=== PATIENT | female | born 1945 | race Caucasian/White ===

== ENCOUNTER 2016-06-11 11:51 | Inpatient (IN) | payer MEDICARE, OTHER ==
--- NOTE | ~2016-06-11 | DS ---
Discharge Summary [id number] [place]. [address] NAME: VINCENT AHUMADA : 41 STATUS : DIS IN PAT#: [id number] AGE: 70 ADM/REG DATE : 06/12/16 MR#: [id number] REPORT SERV DATE: 06/15/16 DICTATED BY: AVINASH LARSON DATE: 06/14/16 REPORT STATUS : Draft TRANSCRIBED BY: MODL DATE: 06/14/16 ADMISSION DATE: 06/12/2016 DISCHARGE DATE: 06/14/2016 PRINCIPAL DIAGNOSIS: Escherichia coli sepsis due to pyelonephritis exacerbated by immunocompromised state due to disease modifying antirheumatic drugs versus rheumatoid arthritis. HISTORY OF PRESENT ILLNESS: Please see Dr. Weeks's dictation on 06/11/2016. HOSPITAL COURSE: Admitted with fever, dysuria, flank pain, found to have pyelonephritis. Urine cultures and blood cultures were all positive for E. coli which was sensitive to numerous agents; however, resistant to quinolone therapy. The patient quickly defervesced. White count normalized, but intravenous antibiotics felt to be necessary for total of two- week therapy. A PICC line was placed on 06/13/2016 and ceftriaxone was given for total two weeks with the blessing of the Infectious Disease consultants. She would have Rocephin daily through the Infusion Center and have the PICC line removed at the end of the two-week period of time. She is recommended to hold off her methotrexate during the course of her antibiotic therapy and then to discuss with stripping and booking machine operator, Dr. Bateman regarding long-term reduction of hydroxychloroquine and possibly reduction in her methotrexate dose as well. Immunoglobulins had been ordered and were still pending at the time of dictation. She will follow up with Dr. Richard Jimenez as an outpatient, with Dr. Bateman from Rheumatology. RS/ALANA Avinash Larson M.D. / [id number] CC: Riri Brown M.D. Melinda J. Garcia-Rosell, MD
--- NOTE | ~2016-06-11 | HP ---
History And Physical [facility] [address] [place]. [address] NAME: VINCENT AHUMADA : 41 STATUS : ADM Darian PAT#: [id number] AGE: 70 ADM/REG DATE : 06/11/16 MR#: [id number] REPORT SERV DATE: 06/11/16 DICTATED BY: BRIGHT PAUL DATE: 06/11/16 REPORT STATUS : Draft TRANSCRIBED BY: MODAlysha DATE: 06/11/16 DATE OF ADMISSION: 06/11/2016 REASON FOR ADMISSION: Pyelonephritis. HISTORY OF PRESENT ILLNESS: This is a 70-year-old white female with rheumatoid arthritis on methotrexate. She went to the emergency room about three days ago with complaint of not feeling well. She did have a good workup previously but urinalysis was not done. Yesterday she began having fever and chills and burning with urination. She had shaking rigors during [employer]. She came to the emergency room this morning and urinalysis did not show evidence of urinary tract infection. She does have CVA tenderness on the left side greater than the right. She is being admitted to the hospital for a presumptive diagnosis of pyelonephritis. She has had no hematuria. No dysuria. No melena. She does have a history of malignant colonic polyp in the past. She has had frequent urinary tract infections but no known anatomic defect. She has about three per year. In the emergency room, the urinalysis showed greater than 182 white cells with 9 red cells, large leukocyte esterase, specific gravity 1.017. She has had some nausea and vomiting with this. PAST MEDICAL HISTORY: Rheumatoid arthritis, on methotrexate. She does have a history of asthma and takes a Xolair injection every month prescribed by Dr. Sadia Vincent. She has aerosols as well at home. She has had sinus surgery at [facility]. HOME MEDICATIONS: Yet to be identified. FAMILY HISTORY: She had a brother who has high blood pressure. Her mother had an AL. Her father had colon cancer. She has 5 children who are alive and well. SOCIAL HISTORY: She does not smoke or drink. She lives in [place]. 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 REVIEW OF SYSTEMS: As above. No chest pain or shortness of breath. No wheezing. No melena or hematemesis. The remainder of the review of systems is negative. She did have vein surgery on May [address] [facility]. LABORATORY DATA: The white blood cell count was 00750, hemoglobin 10.2, hematocrit 32.4, and platelets 242,000. The urinalysis showed 182 white cells per high-powered field, specific gravity as above, and 9 rbc's. History And Physical [address] [address] NAME: VINCENT AHUMADA : 41 STATUS : ADM Darian PAT#: [id number] AGE: 70 ADM/REG DATE : 06/11/16 MR#: [id number] REPORT SERV DATE: 06/11/16 DICTATED BY: BRIGHT PAUL DATE: 06/11/16 REPORT STATUS : Draft TRANSCRIBED BY: ALANA DATE: 06/11/16 PHYSICAL EXAMINATION: VITAL SIGNS: Blood pressure 130/70 with a heart rate of 88, respiratory rate 18, afebrile. HEENT: EOMI. Sclerae clear. Conjunctivae pink. NECK: No bruit without any JVD. CHEST: Clear to A and P. HEART: Irregularly irregular sounding S1 and S2 with multiple PACs. BREASTS: Grossly without mass. ABDOMEN: Soft, nontender. Bowel sounds positive. There is some tenderness in the left abdomen and flank. She has CVA tenderness on the left side. The abdomen has no mass. EXTREMITIES: Have no edema. She does have some support stockings on. Distal pulses are intact. Left leg has small sutures from previous venous surgery superficially. NEUROLOGIC: She does withdraw to plantar stimulation. Winder Fixer is symmetric bilaterally. Coordination intact. She has no tremor. Her machine stripper is equal and symmetric. Coordination is intact. ASSESSMENT: 1. Pyelonephritis left-sided. She usually has 2 to 3 urinary tract infections per year. There may be some anatomic abnormality causing this and may deserve a urologic workup once the acute illness is treated. Admit to observation. Use IV Rocephin and observe. Levaquin was given in the emergency room. She can be converted to oral Levaquin or other antibiotic depending on the urine culture once she is able to convert to p.o. 2. Nausea and vomiting secondary to pyelonephritis left-sided. 3. Hypertension recently though she is on no medications for that. 4. Moderate obesity. 5. Recent vein surgery left leg. 6. Gastroesophageal reflux disease. 7. Rheumatoid arthritis, on methotrexate, followed by Dr. Bateman at [facility]. 8. History of asthma on Xolair injections per Dr. Vincent. 9. History of colonic polyp. PLAN: Admit. IV Rocephin. IV fluid hydration. Convert to oral antibiotics once the fever is gone and the patient can tolerate oral medication. 20% of patients with pyelonephritis will have a positive blood culture though it may not require more than a 24-hour hospital observation course. Therefore the patient is admitted to observation. DB/ALANA Bright Paul M.D. / [id number] CC: Cleve Villanueva Jr, MD Jung Park, M.D. History And Physical [address] [address] NAME: VINCENT AHUMADA : 41 STATUS : ADM Darian PAT#: [id number] AGE: 70 ADM/REG DATE : 06/11/16 MR#: [id number] REPORT SERV DATE: 06/11/16 DICTATED BY: BRIGHT PAUL DATE: 06/11/16 REPORT STATUS : Draft TRANSCRIBED BY: MODAlysha DATE: 06/11/16 Riri Hare MD
--- NOTE | ~2016-06-11 | CN ---
Consultation Report [facility] [address] [place]. [address] NAME: VINCENT AHUMADA : 41 STATUS : ADM IN [facility]#: [id number] AGE: 70 ADM/REG DATE : 06/12/16 MR#: [id number] REPORT SERV DATE: 06/14/16 DICTATED BY: NIKKI BRANDT DATE: 06/14/16 REPORT STATUS : Draft TRANSCRIBED BY: MODL DATE: 06/14/16 INFECTIOUS DISEASE CONSULTATION DATE OF CONSULTATION: 06/14/2016 REASON FOR CONSULTATION: Pyelonephritis. HISTORY OF PRESENT ILLNESS: This is a 70-year-old female with a past medical history notable for frequent urinary tract infections along with a history of rheumatoid arthritis, for which she is on methotrexate. She was in her baseline state of health until 06/09 when she just felt fatigued all day. The following day, she developed chills while at [employer]into and then severe rigors and urinary urgency, and these symptoms brought her to the emergency department at [facility] that morning, where she was tachycardic and was found to have marked pyuria on urinalysis and a white blood cell count of 17,600. After blood cultures and urine cultures were obtained, she was started on ceftriaxone. Both sets of blood cultures and her urine culture have returned with E coli resistant to quinolones and Septra. She has been on ceftriaxone and steadily has improved. She did have some left costovertebral angle tenderness on admission and that has resolved. A PICC line has been placed in anticipation of discharge on IV ceftriaxone to finish her course of therapy. PAST MEDICAL HISTORY: As outlined above. The patient states she has seen Dr. Rios of Urology in the past. She is due to see him again, she says, in June or July. For about three months, she took chronic antibiotic prophylaxis with what sounds like Macrodantin. In addition to her rheumatoid arthritis, she has asthma and receives IV infusions of Xolair on a regular basis in the infusion center. The patient recently had vein stripping surgery earlier this month. ALLERGIES: CEPHALEXIN CAUSED A RASH IN THE PAST. PRESENT MEDICATIONS: In addition to the ceftriaxone in the hospital are reviewed as are her outpatient medications. Her outpatient medications in addition to the above include albuterol, Caltrate, cranberry extract, estradiol, Flonase, folic acid, glucosamine and chondroitin tablet, Plaquenil, loratadine, weekly methotrexate, metoprolol, Dulera, multivitamins, Ditropan, and Protonix. SOCIAL HISTORY: She lives with her . Nonsmoker and nondrinker. Lives in [place]. FAMILY HISTORY: Notable for hypertension and coronary artery disease along with colon cancer in her father. REVIEW OF SYSTEMS: As outlined above, otherwise negative. PHYSICAL EXAMINATION: Consultation Report [address] [place]. [address] NAME: VINCENT AHUMADA : 41 STATUS : ADM IN [facility]#: [id number] AGE: 70 ADM/REG DATE : 06/12/16 MR#: [id number] REPORT SERV DATE: 06/14/16 DICTATED BY: NIKKI BRANDT DATE: 06/14/16 REPORT STATUS : Draft TRANSCRIBED BY: ALANA DATE: 06/14/16 GENERAL: This is a pleasant and alert female. VITAL SIGNS: She is presently afebrile. Her maximum fever this hospitalization was 102.5. Pulse is 83, was above 100 over the first hours of admission. Blood pressure 132/68. She weighs 71 kg. HEAD AND NECK: Show clear oral cavity, no thrush. LUNGS: Clear to auscultation. CARDIAC: Regular rate and rhythm without murmur, gallop, or rub. BACK: Shows no CVA tenderness. ABDOMEN: Soft and nontender. EXTREMITIES: Without rash. She does have varicosities in her lower legs. There are small focal well-healing surgical wounds from the vein stripping surgery earlier this month. LABORATORY STUDIES: Creatinine is 0.90. White blood cell count today is 3.9, hemoglobin 10.6, platelets 288. IMAGING STUDIES: The patient had a renal ultrasound on 06/12, which revealed a 7 x 6 x 10 mm calculus within the medial right kidney, otherwise unremarkable. IMPRESSION: Escherichia coli pyelonephritis with sepsis on admission. The patient is doing well on the ceftriaxone. PLAN: 1. We will give IV ceftriaxone through 06/24 either in the infusion center or at home. 2. The patient has followup scheduled with Dr. Rios in June or July. 3. She will call me if she has any problems while on the IV antibiotics, and we discussed what number to call should she develop any rash, diarrhea or problems with her PICC line, etc. LUIGI/MODL Nikki Brandt M.D. / [id number] CC: Riri Brown M.D. Oliver Benton III, M.D.
[2016-06-11 11:06] LABS: HEMOGLOBIN 10.2 g/dL (12.0-16.0); MEAN CORPUS HGB CONC 31.5 g/dL (32.0-36.0); MEAN CORPUSCULAR HEMOGLOB 27.3 pg (26.0-34.0); MEAN PLATELET VOLUME 10.1 fL (9.2-13.0); PLATELET COUNT 242 10/3/uL (150-400); RBC DISTRIBUTION WIDTH 16.2 % (12.0-16.0); RED CELL COUNT 3.74 10/6/uL (4.0-5.6)
[2016-06-11 11:08] LABS: ER CBC TAT 0 Hrs 13 Mins; HEMATOCRIT 32.4 % (36.0-48.0); MANUAL DIFF YES %; MEAN CORPUSCULAR VOLUME 86.6 fL (80-100); WHITE BLOOD CELLS 17.6 10/3/uL (4.5-10.5)
[2016-06-11 11:11] LABS: ASCORBIC ACID (UR NOT ORDER) NEG (NEG); BILIRUBIN, URINE NEGATIVE (NEG); ER URINALYSIS TAT 0 Hrs 16 Mins; KETONE, URINE NEGATIVE (NEG); LEUKOCYTE ESTERASE(NOT OR LARGE (NEG); NITRITE (URINE) NEG (NEG); WBC (NOT ORDERED) (RFLEX) > 182 (0-5)
[2016-06-11 11:19] LABS: INFLUENZA A SCREEN NEGATIVE (NEGATIVE)
[2016-06-11 11:20] LABS: INFLUENZA B SCREEN NEGATIVE (NEGATIVE)
[2016-06-11 11:27] LABS: BAND NEUTROPHILS 9 %; ER DIFF TAT 0 Hrs 32 Mins; LYMPHOCYTES 2 %; LYMPHOCYTES ABSOLUTE (CALC) 0.18 10/3/uL (0.67-4.30); MONOCYTES 12 %; MONOCYTES ABSOLUTE (CALC) 2.29 10/3/uL (0.21-1.20); NEUTROPHILS ABSOLUTE (CALC) 15.14 10/3/uL (2.02-8.40); SEGMENTED NEUTROPHIL (0) 77 %; TOTAL NUCLEATED CELLS 100
[2016-06-11 11:28] LABS: ELLIPTOCYTES 1+ (3-10/OIF) (0-2/OIF); PLATELET ESTIMATE ADQ (ADEQUATE); STOMATOCYTES 1+ (3-10/OIF) (0-2/OIF)
[2016-06-11 11:32] LABS: CALCIUM, SERUM 8.9 MG/DL (8.5-10.4); CHLORIDE, SERUM 105 MMOL/L (96-112); CO2 (CARBON DIOXIDE) 26 MMOL/L (24-34); CPK 308 U/L (0-200); CREATININE 1.23 MG/DL (0.55-1.02); GFR AFRICAN AMERICAN 51 ML/MIN (>=60); GFR NON AFRICAN AMERICAN 44 ML/MIN (>=60); POTASSIUM, SERUM 3.5 MMOL/L (3.5-5.3); SODIUM, SERUM 141 MMOL/L (135-148)
[2016-06-11 11:33] LABS: BUN (BLOOD UREA NITROGEN) 15 MG/DL (6-23); GLUCOSE, SERUM 113 MG/DL (60-99)
[2016-06-11] MEDS ORDERED: MTX2.5 PO ×2 (13:15→13:16)
[2016-06-11] MEDS ORDERED: FOLIC PO (13:16)
[2016-06-11] MEDS ORDERED: TOPXL25 PO (13:17)
[2016-06-11] MEDS ORDERED: PLAQ200B PO (13:17)
[2016-06-11] MEDS ORDERED: PROTONIX PO (13:18)
[2016-06-11] MEDS ORDERED: CRANBERRY500 MG PO (13:18)
[2016-06-11] MEDS ORDERED: DITROPAN XL10 MG PO (13:18)
[2016-06-11] MEDS ORDERED: GLUCCHONDR PO (13:19)
[2016-06-11] MEDS ORDERED: CLARIT10 PO (13:19)
[2016-06-11] MEDS ORDERED: CALTRAT600 PO (13:19)
[2016-06-11] MEDS ORDERED: DULERA 200 MCG/13 GM INH (13:21)
[2016-06-11] MEDS ORDERED: 8 HOUR650 MG PO (13:21)
[2016-06-11] MEDS ORDERED: XOLAIR SC (13:22)
[2016-06-11] MEDS ORDERED: PROAIR HFA INH (13:22)
[2016-06-11] MEDS ORDERED: MULTIVITAMI1 PO (13:23)
[2016-06-11] MEDS ORDERED: FLONASE NAS (13:23)
[2016-06-11] MEDS ORDERED: ESTRACE VAGIN42.5 GM V (13:24)
[2016-06-11] MEDS ORDERED: CLEOCIN300 MG PO (13:26)
[2016-06-12 06:11] LABS: BASOPHILS 0.2 %; BASOPHILS ABSOLUTE 0.03 10/3/uL (0.0-0.16); EOSINOPHILS 1.3 %; EOSINOPHILS ABSOLUTE 0.17 10/3/uL (0.0-0.53); HEMATOCRIT 33.3 % (36.0-48.0); HEMOGLOBIN 10.6 g/dL (12.0-16.0); IMMATURE GRANULOCYTES 0.3 %; IMMATURE GRANULOCYTES ABSOLUTE 0.04 10/3/uL (0.0-0.11); LYMPHOCYTES 6.8 %; LYMPHOCYTES ABSOLUTE 0.88 10/3/uL (0.67-4.30); MEAN CORPUS HGB CONC 31.8 g/dL (32.0-36.0); MEAN CORPUSCULAR HEMOGLOB 27.8 pg (26.0-34.0); MEAN CORPUSCULAR VOLUME 87.4 fL (80-100); MEAN PLATELET VOLUME 10.7 fL (9.2-13.0); MONOCYTES 8.9 %; MONOCYTES ABSOLUTE 1.14 10/3/uL (0.21-1.20); NEUTROPHILS 82.5 %; PLATELET COUNT 235 10/3/uL (150-400); RBC DISTRIBUTION WIDTH 16.3 % (12.0-16.0); RED CELL COUNT 3.81 10/6/uL (4.0-5.6); WHITE BLOOD CELLS 12.9 10/3/uL (4.5-10.5)
[2016-06-12 06:14] LABS: MANUAL DIFF NO %
[2016-06-12 06:21] LABS: BUN (BLOOD UREA NITROGEN) 12 MG/DL (6-23); CALCIUM, SERUM 8.1 MG/DL (8.5-10.4); CHLORIDE, SERUM 112 MMOL/L (96-112); CO2 (CARBON DIOXIDE) 26 MMOL/L (24-34); CREATININE 1.07 MG/DL (0.55-1.02); GFR AFRICAN AMERICAN 60 ML/MIN (>=60); GFR NON AFRICAN AMERICAN 52 ML/MIN (>=60); GLUCOSE, SERUM 115 MG/DL (60-99); POTASSIUM, SERUM 4.2 MMOL/L (3.5-5.3); SODIUM, SERUM 145 MMOL/L (135-148)
[2016-06-13 06:15] LABS: BASOPHILS 0.4 %; BASOPHILS ABSOLUTE 0.03 10/3/uL (0.0-0.16); EOSINOPHILS 0.9 %; EOSINOPHILS ABSOLUTE 0.06 10/3/uL (0.0-0.53); HEMATOCRIT 31.5 % (36.0-48.0); IMMATURE GRANULOCYTES 0.1 %; IMMATURE GRANULOCYTES ABSOLUTE 0.01 10/3/uL (0.0-0.11); LYMPHOCYTES 8.6 %; LYMPHOCYTES ABSOLUTE 0.58 10/3/uL (0.67-4.30); MEAN CORPUS HGB CONC 31.7 g/dL (32.0-36.0); MEAN CORPUSCULAR HEMOGLOB 27.7 pg (26.0-34.0); MEAN CORPUSCULAR VOLUME 87.3 fL (80-100); MEAN PLATELET VOLUME 10.5 fL (9.2-13.0); MONOCYTES 8.9 %; NEUTROPHILS 81.1 %; NEUTROPHILS ABSOLUTE 5.45 10/3/uL (2.02-8.40); PLATELET COUNT 257 10/3/uL (150-400); RBC DISTRIBUTION WIDTH 16.3 % (12.0-16.0); RED CELL COUNT 3.61 10/6/uL (4.0-5.6)
[2016-06-13 06:16] LABS: MANUAL DIFF NO %; WHITE BLOOD CELLS 6.7 10/3/uL (4.5-10.5)
[2016-06-13 06:27] LABS: CALCIUM, SERUM 8.2 MG/DL (8.5-10.4); CHLORIDE, SERUM 109 MMOL/L (96-112); CO2 (CARBON DIOXIDE) 26 MMOL/L (24-34); CREATININE 0.93 MG/DL (0.55-1.02); GFR AFRICAN AMERICAN 71 ML/MIN (>=60); GFR NON AFRICAN AMERICAN 61 ML/MIN (>=60); GLUCOSE, SERUM 108 MG/DL (60-99); POTASSIUM, SERUM 3.9 MMOL/L (3.5-5.3); SODIUM, SERUM 143 MMOL/L (135-148)
[2016-06-13 06:28] LABS: BUN (BLOOD UREA NITROGEN) 7 MG/DL (6-23)
[2016-06-14 04:20] LABS: BASOPHILS ABSOLUTE 0.04 10/3/uL (0.0-0.16); EOSINOPHILS 4.1 %; EOSINOPHILS ABSOLUTE 0.16 10/3/uL (0.0-0.53); HEMATOCRIT 33.6 % (36.0-48.0); HEMOGLOBIN 10.6 g/dL (12.0-16.0); IMMATURE GRANULOCYTES 0.3 %; IMMATURE GRANULOCYTES ABSOLUTE 0.01 10/3/uL (0.0-0.11); LYMPHOCYTES ABSOLUTE 0.81 10/3/uL (0.67-4.30); MEAN CORPUS HGB CONC 31.5 g/dL (32.0-36.0); MEAN CORPUSCULAR HEMOGLOB 27.6 pg (26.0-34.0); MEAN CORPUSCULAR VOLUME 87.5 fL (80-100); MEAN PLATELET VOLUME 10.2 fL (9.2-13.0); MONOCYTES 17.6 %; MONOCYTES ABSOLUTE 0.68 10/3/uL (0.21-1.20); NEUTROPHILS ABSOLUTE 2.16 10/3/uL (2.02-8.40); PLATELET COUNT 288 10/3/uL (150-400); RBC DISTRIBUTION WIDTH 16.3 % (12.0-16.0); RED CELL COUNT 3.84 10/6/uL (4.0-5.6)
[2016-06-14 04:21] LABS: MANUAL DIFF NO %; WHITE BLOOD CELLS 3.9 10/3/uL (4.5-10.5)
[2016-06-14 04:34] LABS: CALCIUM, SERUM 8.9 MG/DL (8.5-10.4); CHLORIDE, SERUM 108 MMOL/L (96-112); CO2 (CARBON DIOXIDE) 28 MMOL/L (24-34); GFR AFRICAN AMERICAN 74 ML/MIN (>=60); GFR NON AFRICAN AMERICAN 64 ML/MIN (>=60); GLUCOSE, SERUM 90 MG/DL (60-99); POTASSIUM, SERUM 4.2 MMOL/L (3.5-5.3); SODIUM, SERUM 143 MMOL/L (135-148)
[2016-06-14 04:35] LABS: BUN (BLOOD UREA NITROGEN) 11 MG/DL (6-23)
[2016-06-14 04:57] LABS: IMMUNOGLOBULIN A 85 MG/DL (70-420); IMMUNOGLOBULIN G 640 MG/DL (673-1464); IMMUNOGLOBULIN M 59 MG/DL (30-270)
[2016-06-14 05:19] LABS: PROCALCITONIN 3.02 ng/mL (<0.5)
[2016-06-14] MEDS ORDERED: ROCEPH IV (15:54)
[2016-06-16 16:37] LABS: IMMUNOGLOBULIN D 1.3 mg/dL (<15.4)
== END 2016-06-14 16:56 | disposition home or self-care (01) | DRG 872 ==
LOC: ER 11:51 → CDU1 13:33 → CDU2 14:36
PROVIDERS: Internal Medicine; Physician Assistant
PROC: 02HV33Z Insertion of Infusion Device into Superior Vena Cava, Percutaneous Approach (ICD-10-PCS; principal; 2016-06-13)
PROC: 4A02X4A Measurement of Cardiac Electrical Activity, Guidance, External Approach (ICD-10-PCS; 2016-06-13)
DX: A41.9 Sepsis, unspecified organism (principal); M06.9 Rheumatoid arthritis, unspecified; I10 Essential (primary) hypertension; N12 Tubulo-interstitial nephritis, not specified as acute or chronic; A41.51 Sepsis due to Escherichia coli [E. coli]; Z79.899 Other long term (current) drug therapy; Z87.440 Personal history of urinary (tract) infections; J45.909 Unspecified asthma, uncomplicated; Z82.49 Family history of ischemic heart disease and other diseases of the circulatory system; Z80.0 Family history of malignant neoplasm of digestive organs; Z16.23 Resistance to quinolones and fluoroquinolones; E66.9 Obesity, unspecified; Z68.26 Body mass index [BMI] 26.0-26.9, adult; K21.9 Gastro-esophageal reflux disease without esophagitis; Z86.010 Personal history of colon polyps
CPT/HCPCS: 36569; 76775; 80048; 81001; 82550; 82784; 82785; 84145; 85025; 87040; 87077; 87086; 87150; 87186; 87804; 94640; 96365; 99284; A9270-GY; C1751; J1956